=== PATIENT | male | born 1960 | race Caucasian/White ===

== ENCOUNTER 2022-09-10 12:36 | Outpatient (RCR) | payer BC, SELFPAY ==
--- NOTE | 2022-08-13 11:15 | URNOTE ---
Request received for [facility] ([id number] Prior authorization is approved Lupron Depot 22.5 mg, 15 units, 09/08/2022 to 09/08/2023 from Eliud Pack MA.
[2022-09-10] MEDS: LEUPROLIDE ACETATE 22.5 MG (SQ) SYRINGE SUBCUT (13:42)
[2022-09-10 14:53] VITALS: BP 138/82; PULSE 85; RESP 16; TEMP 36.2; O2SAT 96
== END 2023-03-09 23:59 | disposition home or self-care (01) ==
LOC: CCIC 12:36
PROVIDERS: Visit Provider Internal Medicine
DX: C61 Malignant neoplasm of prostate (principal); Z79.818 Long term (current) use of other agents affecting estrogen receptors and estrogen levels
CPT/HCPCS: 96401; J9217